=== PATIENT | male | born 2000 | race Caucasian/White ===

== ENCOUNTER 2021-03-15 09:54 | Emergency (ER) | payer BC, OTHER ==
[~2021-03-15 09:54] MED LIST: CELEBREX 200MG200 MG PO
[2021-03-15 11:20] LABS: HEMOGLOBIN 14.4 gm/dl (14.0-17.5); RED BLOOD COUNT 4.65 M/UL (4.20-5.50); WHITE BLOOD COUNT 4.7 K/UL (4.5-11.0)
[2021-03-15 11:42] LABS: BUN/CREATININE RATIO 23 (0-10)
== END 2021-03-15 12:35 | disposition home or self-care (01) ==
LOC: ER1 09:54
PROVIDERS: Physician Assistant
DX: G40.909 Epilepsy, unspecified, not intractable, without status epilepticus (principal); Z20.822 Contact with and (suspected) exposure to COVID-19
CPT/HCPCS: 0240U; 80053; 80183; 85025; 87081; 87880; 96372; 99283; J2060

== ENCOUNTER 2021-09-06 10:01 | Emergency (ER) | payer BC, OTHER ==
[2021-09-06 11:54] LABS: HEMOGLOBIN 14.5 gm/dl (14.0-17.5); RED BLOOD COUNT 4.71 M/UL (4.20-5.50); WHITE BLOOD COUNT 8.5 K/UL (4.5-11.0)
[2021-09-06 12:25] LABS: BUN/CREATININE RATIO 24 (0-10)
== END 2021-09-06 19:56 | disposition short-term general hospital (02) ==
LOC: ER1 10:01
PROVIDERS: Student in an Organized Health Care Education/Training Program
DX: N13.2 Hydronephrosis with renal and ureteral calculous obstruction (principal); Z88.2 Allergy status to sulfonamides; Z90.5 Acquired absence of kidney
CPT/HCPCS: 51701; 74018; 80053; 81001; 85025; 99152; 99153; 99285; J2405; J2704; J7030